=== PATIENT | female | born 1935 | race Caucasian/White ===

== ENCOUNTER 2023-08-17 11:40 | Observation (INO) ==
[2023-08-17] MEDS: GLUCAGON,HUMAN RECOMBINANT 1 MG VIAL IV ONE (13:25)
[2023-08-17 13:27] LABS: Basophils # (Auto) 0.02 K/mcL (0.00-0.30); Basophils % (Auto) 0.2 % (0.0-2.0); Eosinophils # (Auto) 0.01 K/mcL (0.00-0.70); Eosinophils % (Auto) 0.1 % (0.0-7.0); Hematocrit 43.8 % (34.1-44.9); Hemoglobin 13.7 g/dL (11.2-15.7); Lymphocytes # (Auto) 1.18 K/mcL (1.50-4.80); Lymphocytes % (Auto) 11.8 % (15.5-49.0); Mean Cell Volume 90.1 fL (80.0-100.0); Mean Corpuscular HGB Conc 31.3 g/dL (31.0-36.0); Mean Platelet Volume 9.2 fL (8.8-12.5); Neutrophils % (Auto) 82.8 % (38.0-78.0); Platelet Count 208 K/mcL (140-440); RBC 4.86 M/mcL (3.59-5.38); Red Cell Distribution Width 13.8 % (11.5-14.5)
[2023-08-17] MEDS: ONDANSETRON 4 MG/2 ML VIAL IV ONE (13:29)
[2023-08-17] MEDS: ONDANSETRON 4 MG/2 ML VIAL ONE (13:34)
[2023-08-17 13:47] LABS: Blood Urea Nitrogen 28 mg/dL (8-23); Calcium 10.1 mg/dL (8.6-10.4); Carbon Dioxide 25 mmol/L (22-30); Chloride 100 mmol/L (96-108); Glomerular Filtration Rate 57; Glucose 113 mg/dL (70-105); Potassium 4.1 mmol/L (3.3-5.1); Sodium 139 mmol/L (133-145)
[2023-08-17] MEDS: 0.9 % SODIUM CHLORIDE 1,000 ML IV SCH (14:20)
[2023-08-17] MEDS ORDERED: ONDANSETRON 4 MG/2 ML VIAL IV PRN (16:26)
[2023-08-17] MEDS ORDERED: DIATRIZOATE MEGLU/DIATRIZO SOD 120ML BOTTLE PO ONE (17:12)
[2023-08-17] MEDS: GLUCAGON,HUMAN RECOMBINANT 1 MG VIAL IV SCH (18:08)
[2023-08-17] MEDS ORDERED: ACETAMINOPHEN 500 MG/50 ML BAG IV PRN (18:19)
[2023-08-17] MEDS: METOCLOPRAMIDE PO SCH (20:18)
[2023-08-17] MEDS: [UNRECOGNIZED DRUG - OTHER] PO SCH (20:18)
[2023-08-17] MEDS: 0.9 % SODIUM CHLORIDE 10 ML SYRINGE IV SCH (20:18)
[2023-08-17] MEDS ORDERED: DOCUSATE SODIUM 100 MG CAPSULE PO SCH (21:00)
[2023-08-17] MEDS ORDERED: SENNOSIDES 1 TABLET PO SCH (21:00)
[2023-08-17] MEDS ORDERED: 0.9 % SODIUM CHLORIDE 10 ML SYRINGE IV SCH (22:00)
== END 2023-08-18 15:02 | disposition home or self-care (01) ==
LOC: MEDSUR 11:40 → ED 11:40 → MEDSUR 17:30
PROVIDERS: ADMIT Family Medicine Adult Medicine; ATTEND Family Medicine Adult Medicine